=== PATIENT | female | born 1965 | race Caucasian/White ===

== ENCOUNTER 2018-03-22 17:45 | Emergency (ER) | payer OTHER, BC ==
[2018-03-22 18:05] VITALS: BP 113/72
[2018-03-22] MEDS ORDERED: Ketorolac 60 MG/2 ML SDV IM ONE (18:05)
--- NOTE | 2018-03-22 18:09 | EDM.PDOC ---
ED HPI GENERAL MEDICAL PROBLEM - General Chief Complaint: Head Injury Stated Complaint: FELL/HEAD INJRY Time Seen by Provider: 03/22/18 17:45 Source of Information: Reports: Patient History Limitations: Reports: No Limitations - History of Present Illness INITIAL COMMENTS - FREE TEXT/NARRATIVE: 52 y.o.w.lucio came to the ed by herself several hours after she hit her head a heavy metal at work. no LOC, pt ois on no blood thinners like ASA or coumadine. She felt a "bump" at her left head and came to the ed. No N/V/d or dizziness. Pt said, she can not work. No other acute medical issues. BP 113/71 Pulse 76 RR 18 Pulse ox 100% on RA, Temp 36.6 Onset Date: 03/22/18 Onset Time: 01:00 Duration: Hour(s):, Improving Location: Reports: Head Severity: Mild Improves with: Reports: Rest Worsens with: Reports: Movement Context: Reports: Trauma (it head at work on a heavy metal box) Associated Symptoms: Reports: No Other Symptoms Headache Pain Score (Numeric/FACES): 5 - Related Data Allergies Allergy/AdvReac Type Severity Reaction Status Date / Time No Known Allergies Allergy Verified 03/22/18 19:18 Home Meds: Home Meds Cyclobenzaprine [Flexeril] 10 mg PO TID 03/22/18 [History] FLUoxetine HCl [Fluoxetine HCl] 60 mg PO 03/22/18 [History] SUMAtriptan [Imitrex] 25 mg PO Q2H PRN 03/22/18 [History] Temazepam 15 mg PO BEDTIME PRN 03/22/18 [History] Past Medical History - Past Health History Medical/Surgical History: Denies Medical/Surgical History Other HEENT History: history of allergic rhinitis Gastrointestinal History: Reports: Irritable Bowel Syndrome Musculoskeletal History: Reports: Arthritis Psychiatric History: Reports: Anxiety, Depression - Past Surgical History Female Surgical History: Reports: Breast Reduction, Section, Hysterectomy ED ROS GENERAL - Review of Systems Review Of Systems: See Below Constitutional: Reports: No Symptoms HEENT: Reports: No Symptoms Respiratory: Reports: No Symptoms Cardiovascular: Reports: No Symptoms Endocrine: Reports: No Symptoms GI/Abdominal: Reports: No Symptoms : Reports: No Symptoms Musculoskeletal: Reports: No Symptoms Skin: Reports: Lumps (;left parietal area) Neurological: Reports: No Symptoms Psychiatric: Reports: No Symptoms Hematologic/Lymphatic: Reports: No Symptoms Immunologic: Reports: No Symptoms ED EXAM, HEAD INJURY - Physical Exam Exam: See Below Exam Limited By: No Limitations General Appearance: Alert, WD/WN, No Apparent Distress Head: Scalp Hematoma (minoe left parietal ) Eyes: Bilateral Eye: Normal Inspection Ears: Normal External Exam, Normal Canal, Hearing Grossly Normal, Normal TMs Nose: Normal Inspection, Normal Mucousa, No Blood Throat/Mouth: Normal Inspection, Normal Lips, Normal Gums, Normal Voice, No Airway Compromise Neck: Non-Tender, Full Range of Motion, Normal Alignment, Normal Inspection Respiratory: No Respiratory Distress, Lungs Clear, Normal Breath Sounds, No Accessory Muscle Use, Chest Non-Tender Cardiovascular: Normal Peripheral Pulses, Regular Rate, Rhythm, No Edema, No Gallop, No JVD, No Murmur, No Rub GI/Abdominal Exam: Normal Bowel Sounds, Soft, Non-Tender, No Organomegaly, No Distention, No Abnormal Bruit, No Mass, Pelvis Stable (Female) Exam: Deferred Rectal (Female) Exam: Deferred Back Exam: Normal Inspection, Full Range of Motion Extremities: Normal Inspection, Normal Range of Motion, Non-Tender, No Pedal Edema, Normal Capillary Refill Neurologic: consumer electronics merchandiser II-XII nml As Tested, No Motor/Sensory Deficits, Alert, Normal Mood/Affect, Oriented x 3 Skin: Normal Color, Warm/Dry - Ronnie Coma Score Best Eye Response (Ronnie): (4) Open Spontaneously Best Verbal Response (Ronnie): (5) Oriented Best Motor Response ([place]): (6) Obeys Commands [place] Total: 15 Course - Vital Signs Text/Narrative:: 52 y.o.w.f came to the ed by herself several hours after she hit her head a heavy metal at work. no LOC, pt ois on no blood thinners like ASA or coumadine. She felt a "bump" at her left head and came to the ed. No N/V/d or dizziness. Pt said, she can not work. No other acute medical issues. BP 113/71 Pulse 76 RR 18 Pulse ox 100% on RA, Temp 36.6 PE: 52 y.o.w.f with a h/a due to an injury at work imaging: Refused Impression: tension Headache, SQ hematoma (minor), workmans comp Tx: Toradol, ICE Reexam: improved Plan: D/C with instructions Last Recorded V/S: Last Vital Signs Temp 36.3 C 03/22/18 17:55 Pulse 70 03/22/18 17:55 Resp 16 03/22/18 17:55 BP 113/72 03/22/18 17:55 Pulse Ox 100 03/22/18 17:55 - Orders/Labs/Meds Meds: Medications Discontinued Medications Generic Name Dose Route Start Last Admin Trade Name Deven PRN Reason Stop Dose Admin Ketorolac Tromethamine 60 mg 03/22/18 18:05 03/22/18 18:10 Toradol IM 03/22/18 18:06 60 mg ONETIME ONE Administration Departure - Departure Time of Disposition: 18:20 Disposition: Home, Self-Care 01 Condition: Good Clinical Impression: Subcutaneous hematoma - Discharge Information Instructions: Hematoma, [id number] Referrals: Sam Isidro MD [Primary Care Provider] - Forms: ED Department Discharge, ED Return to Work/School Form Additional Instructions: Please apply ICE to the affected area, please take Motrin for pain. Please f/u with your PMD in next 2 days, please come back if your symptoms get worse acutely
== END 2018-03-22 18:20 | disposition home or self-care (01) ==
LOC: FB.ED 17:45
DX: S00.03XA Contusion of scalp, initial encounter (principal); W22.8XXA Striking against or struck by other objects, initial encounter
CPT/HCPCS: 96372; 99283; J1885

== ENCOUNTER 2018-12-18 15:19 | Emergency (ER) | payer BC ==
[2018-12-18] MEDS ORDERED: Ondansetron 4 MG/2 ML SDV IVPUSH ONE (16:11)
[2018-12-18] MEDS ORDERED: Ketorolac 30 MG/ML SDV IVPUSH ONE (16:11)
--- NOTE | 2018-12-18 16:15 | EDM.PDOC ---
ED HPI GENERAL MEDICAL PROBLEM - General Chief Complaint: Abdominal Pain Stated Complaint: RT ABD PAIN, LOOSE STOOL Time Seen by Provider: 12/18/18 15:19 Source of Information: Reports: Patient, Family History Limitations: Reports: No Limitations - History of Present Illness INITIAL COMMENTS - FREE TEXT/NARRATIVE: 53 y.o.w.f came to the [facility] due to RUQ and Right flank pain was was transferred to the ED for further care. Pt underwent a partial hysterectomy and a Cholecystectomy in the past. The pain started this morning when she took a shower, was bending forward to package pick up an object. She fell suddenly excrutiating pain at her RUQ of her abd., radiating to her right flank and back. Pt has Kidney stones in the past. Her UA taken at the [facility] clinic was cloudy but neg for infection. No Trauma. Pt felt nauseated, did not vomit, however. Pt was told in 2013, she has a nonspecific lesion at her liver, measuring 3.1 cm. Pt did not F/U on that issue, however. No other acute medical issues. BP 144/58 RR 16 Temp 36.6 Pulse ox 100% on RA Pulse 72 Onset Date: 12/18/18 Onset Time: 09:00 Duration: Hour(s):, Intermittent Location: Reports: Abdomen (RUQ and right flank. ), Back Quality: Reports: Ache, Burning, Dull, Pressure Severity: Moderate Improves with: Reports: Rest Worsens with: Reports: Movement Context: Reports: Other (H/O liver lesion dx'd 2013) - Related Data Allergies Allergy/AdvReac Type Severity Reaction Status Date / Time No Known Allergies Allergy Verified 12/18/18 19:56 Home Meds: Home Meds Cyclobenzaprine [Flexeril] 10 mg PO TID 03/22/18 [History] FLUoxetine HCl [Fluoxetine HCl] 60 mg PO TID 03/22/18 [History] SUMAtriptan [Imitrex] 25 mg PO Q2H PRN 03/22/18 [History] Temazepam 15 mg PO BEDTIME PRN 03/22/18 [History] Past Medical History - Past Health History Medical/Surgical History: Denies Medical/Surgical History Other HEENT History: history of allergic rhinitis Gastrointestinal History: Reports: Irritable Bowel Syndrome Musculoskeletal History: Reports: Arthritis Neurological History: Reports: Concussion Psychiatric History: Reports: Anxiety, Depression - Past Surgical History Female Surgical History: Reports: Breast Reduction, Section, Hysterectomy Social & Family History - Family History Family Medical History: Noncontributory - Caffeine Use Caffeine Use: Reports: Coffee Caffeine Use Comment: 1 cup per day ED ROS GENERAL - Review of Systems Review Of Systems: See Below Constitutional: Reports: No Symptoms HEENT: Reports: No Symptoms Respiratory: Reports: No Symptoms Cardiovascular: Reports: No Symptoms Endocrine: Reports: No Symptoms GI/Abdominal: Reports: Abdominal Pain (RUQ) : Reports: No Symptoms Musculoskeletal: Reports: No Symptoms Skin: Reports: No Symptoms Neurological: Reports: No Symptoms Psychiatric: Reports: No Symptoms Hematologic/Lymphatic: Reports: No Symptoms Immunologic: Reports: No Symptoms ED EXAM, RENAL/ - Physical Exam Exam: See Below Exam Limited By: No Limitations General Appearance: Alert, WD/WN, Mild Distress, Moderate Distress Eye Exam: Bilateral Eye: Normal Inspection Ears: Normal External Exam Nose: Normal Inspection Throat/Mouth: Normal Inspection, Normal Lips, Normal Voice, No Airway Compromise Head: Atraumatic, Normocephalic Neck: Normal Inspection, Supple, Non-Tender Respiratory/Chest: No Respiratory Distress, Lungs Clear, Normal Breath Sounds, Chest Non-Tender Cardiovascular: Normal Peripheral Pulses, Regular Rate, Rhythm, No Edema, No Gallop GI/Abdominal: Tender (RUQ of abd. Right flank) (Female) Exam: Deferred Rectal (Female) Exam: Deferred Back Exam: Normal Inspection, Full Range of Motion Extremities: Normal Inspection, Normal Range of Motion, Non-Tender, No Pedal Edema, Normal Capillary Refill Neurological: Alert, Oriented, CN II-XII Intact, Normal Cognition, Normal Gait Psychiatric: Normal Affect, Normal Mood Skin Exam: Warm, Dry, Intact, Normal Color, No Rash Lymphatic: No Adenopathy Course - Vital Signs Text/Narrative:: 53 y.o.w.f came [facility] due to RUQ and Right flank pain was was transferred to the ED for further care. Pt underwent a partial hysterectomy and a Cholecystectomy in the past. The pain started this morning when she took a shower, was bending forward to package pick up an object. She fell suddenly excrutiating pain at her RUQ of her abd., radiating to her right flank and back. Pt has Kidney stones in the past. Her UA taken at the [facility] was cloudy but neg for infection. No Trauma. Pt felt nauseated, did not vomit, however. Pt was told in 2013, she has a nonspecific lesion at her liver, measuring 3.1 cm. Pt did not F/U on that issue, however. No other acute medical issues. BP 144/58 RR 16 Temp 36.6 Pulse ox 100% on RA Pulse 72 PE: WNWD W F with RUW and R flank pain, nauseated. Imaging: CT abd/pelvis: No acute findings, please see report enclosed. U/S abd. limited: Results are pending. Labs: CBC and BMP were neg Ca was 8.4, however UA taken in the clinic was neg for UTI Impression: RUR abd. pain R flank pain, epigastric pain, cause not determined. Tx: Toradol, Zofran, Morphine, GI cocktail. [place] to take home Reexam: improved, Pt requested to be d/c'd Plan: D/C with instructions Last Recorded V/S: Last Vital Signs Temp 36.6 C 12/18/18 16:35 Pulse Resp 16 12/18/18 16:35 BP 135/84 12/18/18 17:05 Pulse Ox 96 12/18/18 16:35 - Orders/Labs/Meds Orders: Active Orders 24 hr Category Date Time Status Abdomen Ltd [US] Stat Exams 12/18/18 18:33 Taken Abdomen Pelvis wo Cont [CT] Stat Exams 12/18/18 17:15 Taken Labs: Laboratory Tests 12/18/18 12/18/18 Range/Units 16:23 16:23 WBC 5.5 (4.5-12.0) X10-3/uL RBC 4.20 (3.23-5.20) x10(6)uL Hgb 13.0 (11.5-15.5) g/dL Hct 37.9 (30.0-51.3) % MCV 90.4 (80-96) fL MCH 31.1 (27.7-33.6) pg MCHC 34.4 (32.2-35.4) g/dL RDW 13.1 (11.5-15.5) % Plt Count 199 (125-369) X10(3)uL MPV 8.6 (7.4-10.4) fL Neut % (Auto) 62.7 (46-82) % Lymph % (Auto) 27.2 (13-37) % [place] % (Auto) 8.2 (4-12) % Eos % (Auto) 1 (1.0-5.0) % Baso % (Auto) 1 (0-2) % Neut # (Auto) 3.5 (1.6-8.3) # Lymph # (Auto) 1.5 (0.6-5.0) # [place] # (Auto) 0.4 (0.0-1.3) # Eos # (Auto) 0.1 (0.0-0.8) # Baso # (Auto) 0.0 (0.0-0.2) # Sodium 142 (135-145) mmol/L Potassium 3.7 (3.5-5.3) mmol/L Chloride 106 (100-110) mmol/L Carbon Dioxide 27 (21-32) mmol/L BUN 15 (7-18) mg/dL Creatinine 0.8 (0.55-1.02) mg/dL Est Cr Clr Drug Dosing TNP Estimated GFR (MDRD) > 60 (>60) BUN/Creatinine Ratio 18.8 (9-20) Glucose 105 (80-116) mg/dL Calcium 8.4 L (8.6-10.2) mg/dL Meds: Medications Discontinued Medications Generic Name Dose Route Start Last Admin Trade Name Freq PRN Reason Stop Dose Admin Al Hydroxide/Mg Hydroxide 15 0 ml 12/18/18 19:18 12/18/18 19:30 ml/ Lidocaine HCl 15 ml PO 12/18/18 19:19 30 ml ONETIME ONE Administration Ketorolac Tromethamine 30 mg 12/18/18 16:11 12/18/18 16:50 Toradol IVPUSH 12/18/18 16:12 30 mg ONETIME ONE Administration Morphine Sulfate 4 mg 12/18/18 17:21 12/18/18 17:48 Morphine IVPUSH 12/18/18 17:22 4 mg ONETIME ONE Administration Morphine Sulfate Confirm 12/18/18 17:45 12/18/18 17:49 Morphine Sulfate Administered 12/18/18 17:46 Not Given Dose 4 mg .ROUTE .STK-MED ONE Ondansetron HCl 8 mg 12/18/18 16:11 12/18/18 16:48 Zofran IVPUSH 12/18/18 16:12 8 mg ONETIME ONE Administration Departure - Departure Time of Disposition: 19:19 Disposition: Home, Self-Care 01 Condition: Good Clinical Impression: Gastritis and duodenitis - Discharge Information Referrals: Sam Isidro MD [Primary Care Provider] - Forms: ED Department Discharge, ED Return to Work/School Form Additional Instructions: please take maalox for your gstritis, please f/u with your PMD, please take comeback if your your symptoms get worse acutely - My Orders Last 24 Hours: My Active Orders 12/18/18 17:15 Abdomen Pelvis wo Cont [CT] Stat 12/18/18 18:33 Abdomen Ltd [US] Stat - Assessment/Plan Last 24 Hours: My Active Orders 12/18/18 17:15 Abdomen Pelvis wo Cont [CT] Stat 12/18/18 18:33 Abdomen Ltd [US] Stat
[2018-12-18] MEDS ORDERED: Morphine 4 MG/ML Syringe IVPUSH ONE (17:21)
[2018-12-18] MEDS ORDERED: Alum Hydroxide/Mag Hydroxide 15 ML, Lidocaine 2% 15 ML PO ONE ×2 (19:18)
[2018-12-18 20:27] VITALS: BP 135/84
== END 2018-12-18 19:38 | disposition home or self-care (01) ==
LOC: FB.ED 15:19
DX: K29.90 Gastroduodenitis, unspecified, without bleeding (principal)
CPT/HCPCS: 36415; 74176; 76705; 80048; 85025; 96374; 96375; 99284; A9270; J1885; J2270; J2405

== ENCOUNTER 2022-01-07 07:11 | Day surgery (SDC) | payer BC ==
[~2022-01-07 07:11] MED LIST: Lactated Ringers 1,000 ML IV SCH; Sodium Chloride 0.9% 10 ML Syringe FLUSH PRN
[2022-01-07] MEDS ORDERED: Glycopyrrolate 0.2 MG/ML 5 ML MDV IV ONE (07:12)
[2022-01-07] MEDS ORDERED: Lidocaine 2% 100 MG/5 ML Syringe IVPUSH ONE (07:12)
[2022-01-07] MEDS ORDERED: Propofol 200 MG/20 ML SDV IV ONE (07:12)
[2022-01-07 08:23] VITALS: BP 106/72; PULSE 92
== END 2022-01-07 08:31 | disposition home or self-care (01) ==
LOC: FB.SDS 07:11
PROVIDERS: ATTEND Surgery
DX: K22.70 Barrett's esophagus without dysplasia (principal); K29.30 Chronic superficial gastritis without bleeding; K58.1 Irritable bowel syndrome with constipation; K21.00 Gastro-esophageal reflux disease with esophagitis, without bleeding; K44.9 Diaphragmatic hernia without obstruction or gangrene; F41.9 Anxiety disorder, unspecified; F32.A Depression, unspecified; J45.909 Unspecified asthma, uncomplicated; Z90.49 Acquired absence of other specified parts of digestive tract; Z79.899 Other long term (current) drug therapy; Z98.890 Other specified postprocedural states; Z87.891 Personal history of nicotine dependence
CPT/HCPCS: 43239; 88305; 88313; 88342; J2704; J3490; J7120; 00731-QZ